=== PATIENT | female | born 1960 | race Caucasian/White ===

== ENCOUNTER 2020-03-21 11:18 | Emergency (ER) | payer BC ==
[~2020-03-21] VITALS: Ht 167.6 cm; Wt 93.0 kg
--- NOTE | 2020-03-21 11:20 | NUR ---
COMMUNICATION CENTER OPERATOR: CODE NEURO CALLED AT 1105, [facility]
--- NOTE | 2020-03-21 11:21 | NUR ---
BATTER DEPOSITOR: PT TO CT SCAN VIA SUE
--- NOTE | 2020-03-21 11:25 | NUR ---
JUAN CARLOS ARRIVED. PT STRAIGHT BACK TO CT AT 1125. PT TO ED TR 4 AT 1135. PT A&OX4. ABLE TO MOVE ALL EXPTREMITIES. MINIMAL SLURRED SPEECH. CALM AND COOPERATIVE. HISTORY PROVIDED PER PT/EMS. RPT TO VASILIY PEÑA.
--- NOTE | 2020-03-21 11:32 | NUR ---
SANDBLAST OPERATOR: PT BACK FROM CT
[2020-03-21 11:48] LABS: BASOPHILS # (AUTO) 0.01 x10^3/uL (0-0.1); BASOPHILS % (AUTO) 0 % (0-1); EOSINOPHILS % (AUTO) 2 % (1-7); LYMPHOCYTES # (AUTO) 1.26 x10^3/uL (1-3.4); LYMPHOCYTES % (AUTO) 23 % (22-44); MD NO; MEAN CORPUSCULAR HEMOGLOBIN 33.2 pg (27.0-34.8); MEAN CORPUSCULAR HGB CONC 32.9 g/dL (32.4-35.8); MEAN CORPUSCULAR VOLUME 100.8 fL (80-100); MEAN PLATELET VOLUME 7.9 fL (7.4-10.4); MONOCYTES % (AUTO) 7 % (2-9); NEUTROPHILS # (AUTO) 3.76 x10^3/uL (1.8-6.8); NEUTROPHILS % (AUTO) 68 % (42-75); PLATELET COUNT 257 x10^3/uL (130-400); RED BLOOD COUNT 4.13 x10^6/uL (3.82-5.3)
[2020-03-21 11:59] LABS: INTERNATIONAL NORMALIZED RATIO 1.1 (0.93-1.1); PROTHROMBIN TIME 11.7 Seconds (9.6-11.5)
[2020-03-21] MEDS ORDERED: OMNIPAQUE 350 MG/ML, 75ML BOTTLE ONE (12:21)
--- NOTE | 2020-03-21 12:31 | NUR ---
1145 DR SMITH ASSESSED PT VIA TELEMONITOR. 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 PT IS NOT A CNDIDATE FOR TPA PER DR SMITH. THIS RN WILL ATTEMPT TO FIND OUT IF THE STENTS AND COILS ARE MRI COMPATIBLE. DR SMITH WOULD LIKE AN MRI IF ABLE.
--- NOTE | 2020-03-21 12:45 | NUR ---
CALL PLACED TO [facility], DR. ASHFORD OFFICE.
[2020-03-21 12:54] LABS: ALBUMIN 3.3 g/dL (3.4-5.0); ANION GAP 4 mmol/L (5-15); CALCIUM 8.5 mg/dL (8.5-10.1); CHLORIDE 107 mmol/L (98-107)
[2020-03-21 12:58] LABS: ALANINE AMINOTRANSFERASE 15 U/L (12-78); ALKALINE PHOSPHATASE 68 U/L (45-117); BILIRUBIN,TOTAL 0.3 mg/dL (0.2-1.0); CREATININE 0.85 mg/dL (0.55-1.02); TOTAL PROTEIN 6.4 g/dL (6.4-8.2)
[2020-03-21] MEDS ORDERED: ASPIRIN 325 MG TABLET PO ONE (13:00)
[2020-03-21] MEDS ORDERED: hydrALAzine 20 MG/ML, 1ML IV ONE (13:00)
--- NOTE | 2020-03-21 13:02 | NUR ---
PT OOB TO [facility] WITH RN STANDBY ASSIST. PT WITH WEAKNESS LEFT LEG BUT ABLE TO BEAR WEIGHT AND SUPPORT SELF TO GET OOB TO THE COMMODE. VOIDED W/O DIFFICULTY AND RTD TO [facility] W/O INCIDENT.
--- NOTE | 2020-03-21 13:04 | NUR ---
PER DR CONNER, HE SPOKE WITH NEUROLOGIST AT [facility] AND VERIFIED THAT PT IS ABLE TO HAVE MRI.
[2020-03-21 13:07] VITALS: BP 165/90
--- NOTE | 2020-03-21 13:17 | NUR ---
SILKEAR RPT TO VASILIY GARCÍA. PT MOVED TO ROOM 11
--- NOTE | 2020-03-21 13:19 | NUR ---
asked Emeli from [facility] to push imaging to [facility] after the completion of MRI that is being completed now.
--- NOTE | 2020-03-21 13:20 | NUR ---
REPORT RECIEVED FROM VASILIY PEÑA. ASSUMED CARE
[2020-03-21 13:27] LABS: MICROSCOPIC NOT IND
--- NOTE | 2020-03-21 13:57 | NUR ---
SET UP MECHANIC- PATIENT HAS BEEN ACCEPTED BY DR. MAC AT [facility]. CALLED RADIOLOGY AND SPOKE WITH RADHA WHO STATES SHE WILL SEND OUR IMAGING OVER TO [facility] IMMEDIATELY. PAGED DR. SMITH, AT HIS REQUEST, TO NOTIFY HIM THAT PATIENT IS STILL HERE IN OUR ED, IN ROOM 11. PT TO BE TRANSFERRED TO [facility].
[2020-03-21] MEDS ORDERED: ASPIRIN 81 MG TABLET CHEW ONE (14:07)
== END 2020-03-21 15:09 | disposition home or self-care (01) ==
LOC: ED 14:48
DX: I63.22 Cerebral infarction due to unspecified occlusion or stenosis of basilar artery (principal); I10 Essential (primary) hypertension; F17.290 Nicotine dependence, other tobacco product, uncomplicated
CPT/HCPCS: 36415; 70450; 70496; 70498; 80047; 80053; 81003; 85025; 85610; 85730; 93005; 99285; Q9967